=== PATIENT | female | born 1950 | race Caucasian/White ===

== ENCOUNTER 2020-06-11 16:21 | Observation (INO) ==
[2020-06-11] MEDS ORDERED: *HR* LORazepam 2 MG/ML VIAL IVP ONE (18:08)
[2020-06-11] MEDS ORDERED: Ondansetron 4 MG/2 ML VIAL IVP ONE (18:08)
[2020-06-11] MEDS ORDERED: Morphine Sulfate 2 MG/ML SYRINGE IVP ONE (18:09)
[2020-06-11] MEDS ORDERED: diazePAM 10 MG/2 ML SYRINGE IVP ONE (19:36)
[2020-06-12 00:24] LABS: Basophils # 0.1 K/mcL (0.0-0.2); Basophils % 0.6 %; Eosinophils # 0.2 K/mcL (0.0-0.6); Eosinophils % 1.7 %; Hematocrit 42.3 % (35.3-44.9); Hemoglobin 13.8 g/dL (11.5-15.4); Immature Granulocytes % 0.3 % (0-4); Lymphocytes # 2.9 K/mcL (0.6-4.6); Mean Corpuscular HGB Conc 32.6 g/dL (31.6-35.5); Mean Corpuscular Hemoglobin 27.6 pg (28.0-33.3); Mean Corpuscular Volume 84.6 fL (83.0-100.0); Mean Platelet Volume 9.3 fL (9.4-12.4); Monocytes % 10.5 %; Neutrophils # 5.5 K/mcL (1.6-8.9); Platelet Count 266 K/mcL (140-400); Red Cell Distribution Width 13.4 % (11.5-14.5); Segmented Neutrophils % 56.9 %; White Blood Count 9.6 K/mcL (4.3-11.1)
[2020-06-12 00:32] LABS: INR 1.1; Prothrombin Time 12.8 Seconds (9.4-12.1)
[2020-06-12 00:35] LABS: Activated Partial Thrombo Time 27.8 Seconds (26.0-36.0)
[2020-06-12 00:46] LABS: BUN/Creatinine Ratio 33 (6-26); Blood Urea Nitrogen 25 mg/dL (8-23); Calcium 9.2 mg/dL (8.6-10.3); Carbon Dioxide 25 mEq/L (23-29); Chloride 105 mEq/L (98-107); Creatine Kinase 90 Units/L (30-223); Glucose 88 mg/dL (70-105); Osmolality,Calculated 290 (280-300); Potassium 4.1 mEq/L (3.5-5.1); Sodium 138 mEq/L (136-145); eGFR For African Americans > 60 (> 60); eGFR For Non-African Americans > 60 (> 60)
[2020-06-12] MEDS ORDERED: diazePAM 10 MG/2 ML SYRINGE IVP ONE (01:36)
[2020-06-12] MEDS ORDERED: Morphine Sulfate 2 MG/ML SYRINGE IVP ONE (01:36)
[2020-06-12] MEDS ORDERED: Acetaminophen 325 MG TABLET PO PRN (03:04)
[2020-06-12] MEDS ORDERED: Naloxone 0.4 MG/ML INJ IVP PRN (03:04)
[2020-06-12] MEDS ORDERED: Ondansetron 4 MG/2 ML VIAL IVP PRN (03:04)
[2020-06-12] MEDS: 0.9 % Sodium Chloride 1,000 ML IVC SCH ×2 (04:12→16:21)
[2020-06-12] MEDS: tiZANidine 4 MG TABLET PO SCH ×2 (08:27→21:11)
[2020-06-12] MEDS: FLUoxetine 20 MG CAPSULE PO SCH (08:27)
[2020-06-12 11:18] LABS: Basophils # 0.1 K/mcL (0.0-0.2); Basophils % 0.8 %; Eosinophils # 0.3 K/mcL (0.0-0.6); Eosinophils % 4.3 %; Hematocrit 41.4 % (35.3-44.9); Hemoglobin 13.4 g/dL (11.5-15.4); Immature Granulocytes % 0.3 % (0-4); Lymphocytes # 1.8 K/mcL (0.6-4.6); Lymphocytes % 28.4 %; Mean Corpuscular HGB Conc 32.4 g/dL (31.6-35.5); Mean Corpuscular Volume 86.6 fL (83.0-100.0); Mean Platelet Volume 9.5 fL (9.4-12.4); Monocytes # 0.7 K/mcL (0.0-1.3); Monocytes % 10.9 %; Neutrophils # 3.5 K/mcL (1.6-8.9); Platelet Count 250 K/mcL (140-400); Red Blood Count 4.78 M/mcL (3.82-4.97); Red Cell Distribution Width 13.7 % (11.5-14.5); Segmented Neutrophils % 55.3 %; White Blood Count 6.3 K/mcL (4.3-11.1)
[2020-06-12] MEDS ORDERED: *HR* LORazepam 2 MG/ML VIAL IVP ONE (14:24)
[2020-06-12] MEDS ORDERED: hydrOXYzine pamoate 25 MG CAPSULE PO PRN (21:00)
[2020-06-12] MEDS: Ketorolac 15 MG/ML VIAL IVP PRN (21:39)
[2020-06-13 02:34] LABS: Hematocrit 40.3 % (35.3-44.9); Hemoglobin 12.8 g/dL (11.5-15.4); Mean Corpuscular HGB Conc 31.8 g/dL (31.6-35.5); Mean Corpuscular Hemoglobin 27.3 pg (28.0-33.3); Mean Corpuscular Volume 85.9 fL (83.0-100.0); Mean Platelet Volume 9.6 fL (9.4-12.4); Platelet Count 231 K/mcL (140-400); Red Blood Count 4.69 M/mcL (3.82-4.97); Red Cell Distribution Width 13.6 % (11.5-14.5); White Blood Count 7.3 K/mcL (4.3-11.1)
[2020-06-13] MEDS: Ketorolac 15 MG/ML VIAL IVP PRN ×3 (06:09→20:03)
[2020-06-13] MEDS: Cyanocobalamin (B-12) 1,000 MCG TABLET PO SCH (08:21)
[2020-06-13] MEDS: FLUoxetine 20 MG CAPSULE PO SCH (08:21)
[2020-06-13] MEDS: tiZANidine 4 MG TABLET PO SCH (08:21)
[2020-06-13] MEDS: Acetaminophen 325 MG TABLET PO PRN (18:18)
[2020-06-13] MEDS: tiZANidine 4 MG TABLET PO PRN (21:30)
[2020-06-14] MEDS: Ketorolac 15 MG/ML VIAL IVP PRN ×3 (02:50→18:09)
[2020-06-14 04:04] LABS: Hematocrit 38.4 % (35.3-44.9); Hemoglobin 12.3 g/dL (11.5-15.4)
[2020-06-14] MEDS: Cyanocobalamin (B-12) 1,000 MCG TABLET PO SCH (08:15)
[2020-06-14] MEDS: FLUoxetine 20 MG CAPSULE PO SCH (08:15)
[2020-06-14] MEDS: tiZANidine 4 MG TABLET PO PRN ×2 (08:16→23:49)
[2020-06-14] MEDS: Acetaminophen 325 MG TABLET PO PRN ×2 (11:12→18:08)
[2020-06-15] MEDS: Ketorolac 15 MG/ML VIAL IVP PRN (01:12)
[2020-06-15 06:48] LABS: Basophils # 0.1 K/mcL (0.0-0.2); Basophils % 0.7 %; Eosinophils # 0.4 K/mcL (0.0-0.6); Eosinophils % 5.8 %; Hematocrit 39.2 % (35.3-44.9); Hemoglobin 12.8 g/dL (11.5-15.4); Immature Granulocytes % 0.4 % (0-4); Lymphocytes # 3.1 K/mcL (0.6-4.6); Mean Corpuscular HGB Conc 32.7 g/dL (31.6-35.5); Mean Corpuscular Hemoglobin 27.6 pg (28.0-33.3); Mean Corpuscular Volume 84.7 fL (83.0-100.0); Mean Platelet Volume 9.8 fL (9.4-12.4); Monocytes # 0.9 K/mcL (0.0-1.3); Monocytes % 11.2 %; Neutrophils # 3.1 K/mcL (1.6-8.9); Platelet Count 228 K/mcL (140-400); Red Blood Count 4.63 M/mcL (3.82-4.97); Red Cell Distribution Width 13.5 % (11.5-14.5); Segmented Neutrophils % 40.9 %; White Blood Count 7.6 K/mcL (4.3-11.1)
[2020-06-15] MEDS: FLUoxetine 20 MG CAPSULE PO SCH (08:18)
[2020-06-15] MEDS: Cyanocobalamin (B-12) 1,000 MCG TABLET PO SCH (08:19)
[2020-06-15] MEDS: tiZANidine 4 MG TABLET PO PRN (08:20)
[2020-06-15 15:49] VITALS: BP 102/63
[2020-06-15 18:36] LABS: Adenovirus Not Detected (Not Detect); Bordetella Pertussis Not Detected (Not Detect); Chlamydophila pneumoniae Not Detected (Not Detect); Coronavirus 229E Not Detected (Not Detect); Coronavirus HKU1 Not Detected (Not Detect); Coronavirus NL63 Not Detected (Not Detect); Coronavirus OC43 Not Detected (Not Detect); Human Metapneumovirus Not Detected (Not Detect); Human Rhinovirus/Enterovirus Not Detected (Not Detect); Influenza A Subtype 2009 H1 Not Detected (Not Detect); Influenza B Not Detected (Not Detect); Mycoplasma pneumoniae Not Detected (Not Detect); Parainfluenza Virus 1 Not Detected (Not Detect); Parainfluenza Virus 2 Not Detected (Not Detect); Parainfluenza Virus 3 Not Detected (Not Detect); Parainfluenza Virus 4 Not Detected (Not Detect); Respiratory Syncytial Virus Not Detected (Not Detect); SARS-CoV-2 Not Detected (Not Detect)
== END 2020-06-15 20:00 ==
LOC: EMEROOARM 16:21 → 2ANU 16:21 → SUATTDRO 06-12 02:03 → 2ANU 06-12 02:35
PROVIDERS: ADMIT Student in an Organized Health Care Education/Training Program; ATTEND Internal Medicine